=== PATIENT | male | born 1940 | race Caucasian/White ===

== ENCOUNTER → 2020-10-01 00:09 | Outpatient (CLI) | payer MEDICARE, SELFPAY ==
[2020-10-01 18:28] LABS: SARS-CoV-2 RNA PCR Negative
== END ==
PROVIDERS: PCP Internal Medicine; Visit Provider Plastic Surgery
DX: Z01.812 Encounter for preprocedural laboratory examination (principal); Z20.822 Contact with and (suspected) exposure to COVID-19
CPT/HCPCS: C9803; U0003; U0005

== ENCOUNTER 2020-10-04 00:59 | Day surgery (SDC) | payer MEDICARE, SELFPAY ==
[2020-10-01 13:40] VITALS: BMI 24.6
--- NOTE | 2020-10-04 07:06 | WPDHPUPDATE1 ---
History and Physical Update Update Date/Time: 10/04/20 07:06 History and Physical has been reviewed, including an updated exam of the patient. There are NO changes in the patient's condition. Risks, benefits, and alternatives have been discussed and questions answered. Patient agrees to proceed with procedure.
[2020-10-04 08:17] VITALS: BP 116/72; PULSE 109; RESP 16; TEMP 36.8; O2SAT 99
[2020-10-04] MEDS: LACTATED RINGERS 1,000 ML 30 ML IV CONT (08:27)
--- NOTE | 2020-10-04 09:06 | WPDANESEPPF ---
Anes - Initial Pre Proc Eval Procedure: Operation Date: 10/04/20 10:00 Proposed Procedures p Excision Of Basal Cell Carcinoma Right Upper Back - Steve Devries MD Date/Time: 10/04/20 09:06 Surgeon: Steve Devries MD Pre Op Diagnosis: Basal Cell Carcinoma Right Upper Back Patient Data Age: 80 Gender: M Height: 5 ft 5 in Weight: 72 kg Last Vital Signs Temp 36.8 C 10/04/20 08:17 Pulse 109 H 10/04/20 08:17 Resp 16 10/04/20 08:17 BP 116/72 10/04/20 08:17 Pulse Ox 99 10/04/20 08:17 Allergies Allergy/AdvReac Type Severity Reaction Status Date / Time No Known Drug Allergies Allergy Unknown NONE Verified 10/04/20 08:01 Home Medications Medication Instructions Recorded Confirmed Type amiodarone 200 mg PO HS 10/01/20 10/04/20 History budesonide-formoterol [Symbicort] 2 puff INHALATION PRN PRN 10/01/20 10/04/20 History cyanocobalamin (vitamin B-12) 1,000 mcg PO HS 10/01/20 10/04/20 History ferrous sulfate 325 mg PO DAILY 10/01/20 10/04/20 History finasteride 5 mg PO HS 10/01/20 10/04/20 History fludrocortisone 0.1 mg PO DAILY 10/01/20 10/04/20 History midodrine 10 mg PO TID 10/01/20 10/04/20 History pantoprazole 40 mg PO QAM 10/01/20 10/04/20 History ranolazine 500 mg PO QAM 10/01/20 10/04/20 History simvastatin 20 mg PO HS 10/01/20 10/04/20 History tamsulosin 0.4 mg PO HS 10/01/20 10/04/20 History zolpidem 5 mg PO HS 10/01/20 10/04/20 History Patient hx anesthesia problems: none Family hx anesthesia problems: none [facility] Past Medical History Medical History (Updated 10/04/20 @ 09:06 by Brenden Muller MD) CAD (coronary artery disease) HTN (hypertension) Surgical History Surgical History (Updated 10/04/20 @ 09:06 by Brenden Muller MD) Hx of CABG Social History Social History Smoking packs per day: 1 Smoking cigarettes per day: 20.0 Years smoked: 51 Smoking pack-years: 51.00 Smoking status: Former smoker Tobacco type: cigarettes Smoking end date: 08/24/03 Living arrangements: with family Spiritual care concerns: No Anes - Eval Final PreProcedure Day of Procedure 10/04/20 09:06 Patient weight: overweight Heart: regular rate and rhythm Lungs: clear to auscultation Airway: Mallampati scale class II Neurological: alert and oriented Last oral intake: >/= 8 hours ASA classification: III Emergent: no Anesthetic plan: proceed Anesthesia type and monitoring: general GIVS and standard monitoring Informed Consent: The patient's anesthetic plan and its attendant risks and benefits were discussed with the patient/family/POA. Questions were solicited and answers provided to the satisfaction of the patient/family/POA.
[2020-10-04] MEDS: LIDO 1%/EPINEPHRINE 1:100,000 50 ML VIAL 7 ML INFILTRATE (10:05)
[2020-10-04 10:22] VITALS: BP 92/56; PULSE 99; RESP 14; O2SAT 100
--- NOTE | 2020-10-04 10:24 | PM.OP ---
Procedure Note - Brief Procedure Note - Brief Date of procedure: 10/04/20 Pre-op diagnosis: Basal Cell Carcinoma Right Upper Back Post-op diagnosis: same Procedure performed: Excision of BCC right upper back with intermediate repair 6 cm. Anesthesia: MAC Surgeon: Steve Devries MD Pathology: yes Complications: No immediate complications Disposition: same day
--- NOTE | 2020-10-04 10:26 | PM.PROC ---
Procedure Note - Detailed Date of procedure: 10/04/20 Pre-op diagnosis: Basal Cell Carcinoma Right Upper Back Post-op diagnosis: same Procedure performed: 2.6 cm excision of basal cell carcinoma of the right upper back with intermediate repair 6 cm Description of procedure: The site was marked on the patient's back in the holding area. He was taken to the operating room placed supine on the operating table. He was given some IV sedation and positioned under his left side. The back was prepped and draped in usual fashion. The site was marked for an excision. Frozen section was not planned. The area was infiltrated with 1% lidocaine with epinephrine. The full-thickness skin ellipse was taken as marked into the subcutaneous tissue. The wound was cauterized as needed and closed with intradermal 3-0 Vicryl suture and running 4-0 nylon tolerated well specimen sent for permanent section is discharged with no prescriptions Surgeon: Steve Devries MD
[2020-10-04 11:00] VITALS: BP 108/73; PULSE 101
[2020-10-04 11:30] VITALS: BP 105/73; PULSE 98
--- NOTE | 2020-10-04 11:47 | SUR.PHASEII ---
Patient is all ready just waiting on ride.
== END 2020-10-04 11:50 | disposition home or self-care (01) ==
PROVIDERS: PCP Internal Medicine; Visit Provider Plastic Surgery
PROC: (CPT 11603; principal; 2020-10-04 10:00)
DX: C44.519 Basal cell carcinoma of skin of other part of trunk (principal); I10 Essential (primary) hypertension; I25.10 Atherosclerotic heart disease of native coronary artery without angina pectoris; Z95.1 Presence of aortocoronary bypass graft; Z87.891 Personal history of nicotine dependence
CPT/HCPCS: 11603; 12032; 88305; A9270; J2405; J2704; J3010; J7120

== ENCOUNTER → 2021-06-17 03:52 | Outpatient (CLI) | payer MEDICARE, SELFPAY ==
[2021-06-17 19:59] LABS: SARS-CoV-2 RNA PCR Negative
== END ==
PROVIDERS: PCP Internal Medicine; Visit Provider Plastic Surgery
DX: Z01.812 Encounter for preprocedural laboratory examination (principal); Z20.822 Contact with and (suspected) exposure to COVID-19
CPT/HCPCS: C9803; U0003; U0005

== ENCOUNTER 2021-06-17 09:21 | Outpatient (CLI) | payer MEDICARE, SELFPAY ==
[2021-06-17 09:47] LABS: Hematocrit 42.2 % (42.0-52.0); Hemoglobin 13.8 g/dL (14.0-18.0)
[2021-06-17 10:00] LABS: Anion Gap 8 mmol/L (8-16); Blood Urea Nitrogen 23 mg/dL (9-20); Calcium 9.9 mg/dL (8.4-10.2); Carbon Dioxide 31 mmol/L (22-30); Chloride 101 mmol/L (98-107); Estimated Glomerular Filt Rate > 60; Glucose 103 mg/dL (65-110); Potassium 4.6 mmol/L (3.4-5.0); Sodium 140 mmol/L (137-145)
== END 2021-06-17 09:22 | disposition home or self-care (01) ==
LOC: ANHSURGERY 09:26
PROVIDERS: Anesthesiology; PCP Internal Medicine; Visit Provider Plastic Surgery
DX: Z01.818 Encounter for other preprocedural examination (principal); Z79.899 Other long term (current) drug therapy; D64.9 Anemia, unspecified
CPT/HCPCS: 36415; 80048; 85014; 85018; C9803; U0003; U0005

== ENCOUNTER 2021-06-20 01:17 | Day surgery (SDC) | payer MEDICARE, SELFPAY ==
[2021-06-14 15:00] VITALS: BMI 22.5
--- NOTE | 2021-06-20 09:42 | WPDHPUPDATE1 ---
History and Physical Update Update Date/Time: 06/20/21 09:42 History and Physical has been reviewed, including an updated exam of the patient. There are NO changes in the patient's condition. Risks, benefits, and alternatives have been discussed and questions answered. Patient agrees to proceed with procedure.
[2021-06-20 10:45] VITALS: BP 111/68; PULSE 119; RESP 16; TEMP 36.9; O2SAT 99
[2021-06-20 11:35] VITALS: BMI 23.1
[2021-06-20] MEDS: LACTATED RINGERS 1,000 ML 30 ML IV CONT ×2 (11:49→14:58)
--- NOTE | 2021-06-20 12:12 | WPDANESEPPF ---
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 Patient Data Age: 80 Gender: M Height: 1.65 m Weight: 63 kg Allergies Allergy/AdvReac Type Severity Reaction Status Date / Time No Known Drug Allergies Allergy Unknown NONE Verified 06/20/21 10:47 Home Medications Medication Instructions Recorded Confirmed Type cyanocobalamin (vitamin B-12) 1,000 mcg PO HS 10/01/20 06/20/21 History finasteride 5 mg PO HS 10/01/20 06/14/21 History fludrocortisone 0.1 mg PO BID 10/01/20 06/14/21 History midodrine 10 mg PO TID 10/01/20 06/20/21 History pantoprazole 40 mg PO QAM 10/01/20 06/14/21 History ranolazine 500 mg PO BID 10/01/20 06/20/21 History simvastatin 20 mg PO HS 10/01/20 06/14/21 History tamsulosin 0.4 mg PO HS 10/01/20 06/14/21 History budesonide-formoterol [Symbicort] 2 puff INHALATION Q12H PRN 06/14/21 06/14/21 History cetirizine 10 mg PO DAILY 06/14/21 06/14/21 History fluticasone furoate See Rx Instructions .ROUTE .COMPLEX 06/14/21 06/14/21 History furosemide [Lasix] 20 mg PO DAILY 06/14/21 06/14/21 History metoprolol tartrate 25 mg PO DAILY 06/14/21 06/20/21 History multivitamin [Multi-Vitamin] 1 tablet PO DAILY 06/14/21 06/20/21 History nitroglycerin 0.4 mg SUBLINGUAL Q5-15M PRN 06/14/21 06/14/21 History potassium chloride 10 meq PO BID 06/14/21 06/14/21 History sertraline 25 mg DAILY 06/14/21 06/14/21 History spironolactone 50 mg PO DAILY 06/14/21 06/14/21 History Patient hx anesthesia problems: none Family hx anesthesia problems: none Results Review: All pre-operative results and documents have been reviewed as part of the pre-operative evaluation. [facility]LY [facility] Past Medical History Medical History (Updated 10/04/20 @ 09:06 by Brenden Muller MD) CAD (coronary artery disease) HTN (hypertension) Surgical History Surgical History (Updated 10/04/20 @ 09:06 by Brenden Muller MD) Hx of CABG Social History Social History Smoking packs per day: 1 Smoking cigarettes per day: 20.0 Years smoked: 51 Smoking pack-years: 51.00 Smoking status: Former smoker Tobacco type: cigarettes Second hand tobacco smoke exposure: No Smoking end date: 08/24/03 Alcohol intake: never Substance use: never Substance use type: does not use Living arrangements: with family Spiritual care concerns: No Anes - Eval Final PreProcedure Day of Procedure 06/20/21 12:12 Patient weight: normal Heart: irregular rhythm Lungs: clear to auscultation Airway: Mallampati scale class III Neurological: alert and oriented Last oral intake: >/= 8 hours ASA classification: III Emergent: no Anesthetic plan: proceed Anesthesia type and monitoring: general GIVS and standard monitoring Results Review: All pre-operative results and documents have been reviewed as part of the pre-operative evaluation. Informed Consent: The patient's anesthetic plan and its attendant risks and benefits were discussed with the patient/family/POA. Questions were solicited and answers provided to the satisfaction of the patient/family/POA.
[2021-06-20] MEDS: LIDO 1%/EPINEPHRINE 1:100,000 50 ML VIAL 8 ML INFILTRATE (13:43)
[2021-06-20 14:40] VITALS: BP 100/58; PULSE 111; RESP 20; O2SAT 100
--- NOTE | 2021-06-20 14:58 | W.PM.PROC2 ---
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 2. basal cell carcinoma right lateral restorationist) Procedure Performed 2 cm excision of squamous cell carcinoma and left posterior helix rim with frozen section and full-thickness skin graft 2 sq cm. 1 cm excision of basal cell carcinoma of the right lateral restorationist with frozen section and 2 cm intermediate repair Surgeon Steve Devries MD Engineer Assistant She on Anesthesia MAC Indications Prior biopsies Description of Procedure The sites were marked on patient in the holding area. He was taken to the operating room where he was placed supine on the operating table. Time-out was held confirmed. He was given general IV sedation and the base the neck and ear were prepped and draped in usual fashion. The sites were marked for excision and locally infiltrated with 1% lidocaine with epinephrine. The lesion from the ear was taken 1st as an oval ellipse off the perichondrium. The most superior aspect was marked for suture for 12:00 o'clock and was sent to pathology the pathologist revealed that there was prior biopsy changes only no tumor. That site was closed with the full-thickness skin graft taken from the upper neck just behind the earlobe. This is a full-thickness graft elevated after local anesthetic was infiltrated. The the graft was defatted and inset to the ear with 5 0 nylon. Three quilting stitches were placed as well. No additional dressing. The donor site was closed with intradermal running 4-0 Vicryl suture and glue. The 2nd lesion was the basal cell carcinoma taken as a full-thickness specimen from the left lateral restorationist. The specimen also marked for orientation sent to frozen section. Seen report revealed the biopsy changes only no residual tumor. This wound was closed with undermining of 1 cm in all directions. We were able to advance the wound margins with intradermal 4-0 Vicryl sutures. The skin was then closed with running with 5 0 nylon and a small standing cone at 1 end was trimmed out. The patient is discharged in stable condition the lab instructions in wound care and follow-up and a prescription hydrocodone 5/325 number four. Estimated Blood Loss 5 Drains No Packing No Pathology yes Complications No immediate complications Condition stable Disposition same day
[2021-06-20 15:10] VITALS: BP 98/58; PULSE 112; RESP 18; O2SAT 97
[2021-06-20 15:40] VITALS: BP 123/62; PULSE 80; RESP 20; O2SAT 99
== END 2021-06-20 15:50 | disposition home or self-care (01) ==
PROVIDERS: PCP Internal Medicine; Visit Provider Plastic Surgery
PROC: (CPT 11642; principal; 2021-06-20 13:00)
DX: C44.222 Squamous cell carcinoma of skin of right ear and external auricular canal (principal); C44.319 Basal cell carcinoma of skin of other parts of face; I10 Essential (primary) hypertension; I48.91 Unspecified atrial fibrillation; I25.119 Atherosclerotic heart disease of native coronary artery with unspecified angina pectoris; Z95.1 Presence of aortocoronary bypass graft; Z87.891 Personal history of nicotine dependence
CPT/HCPCS: 11642; 15260; 11641; 12051; 88305; 88331; A9270; J2704; J3010; J7120

== ENCOUNTER 2021-09-26 00:25 | Day surgery (SDC) | payer MEDICARE, SELFPAY ==
--- NOTE | 2021-09-18 14:35 | PC.NURSE ---
Report to the Outpatient Waiting Room, entrance under the green pavilion located off [facility], at time __0600 on date __09/26/21 . OR Time: __729 . - You and your visitor will be asked a series of questions to screen for COVID 19 for your protection. - A mask is required within the hospital. - Only one visitor is allowed at this time. Patient visitors will be guided where to wait when not with patient. Preoperative COVID Testing Requirements: No COVID Test needed if: (proof is required; if not received patient will have Rapid Test prior to entry) - Patient has received COVID Vaccine at least 14 days prior to procedure date or - Patient has positive COVID test result within last 90 days of surgery date. COVID Test needed if above criteria is not met If not COVID vaccinated a COVID test must be conducted within 72 hours of surgery and patient is asked to isolate self from time of testing until procedure. You will go to the [facility] for your COVID testing. The [facility] site is located at the corner of [address] [facility]. You will only be called if COVID results are positive and your surgeon may reschedule your elective surgery date. Patients may have clear liquids (water, carbonated beverages, clear teas, apple juice) until 3 hours prior to surgery with a maximum of 20 ounces. - No food from midnight until time of surgery - Infants may have breast milk until 4 hours before surgery, infant formula 6 hours prior to surgery. - Children will be allowed to drink immediately following surgery. If applicable, please bring a bottle or sippy cup to assist with drinking. Juice, water, soda, and popsicles are readily available. For infants on formula, please bring formula the day of surgery. Pacifiers are allowed. Take the following medications with a SIP of water the morning of surgery: __SYMBICORT,METOPROLOL,MIDODRINE,SERTRALINE Medications to discontinue per physician __ALL VITAMINS 3 DAYS PRE OP Date to take last dose__09/22/21 Please no make-up, nail [place], hairspray, perfume, deodorant, or body powder the day of surgery. No jewelry (including any body piercings) or valuables the day of surgery, leave them at home. Please take a shower or bath the night before, or the morning of, surgery with an antibacterial soap. Wear comfortable, loose fitting clothing. Children are encouraged to wear pajamas. - Jewelry must be removed prior to entering the operating room. Rings and piercings that are not removed may be cut off. - The hospital will not accept responsibility for valuables. - Please leave all valuables, including medications, at home the day of surgery. If you are going home after surgery, a licensed driver material handler must drive you home. - NO public transportation without another adult. - We recommend that an adult stay with you for 24 hours following discharge. - We also recommend that you do not drive, make important decision, drink alcoholic beverages, or take any drugs that were not prescribed by your health care provider for at least 24 hours after your discharge time. For Pediatric surgeries, we recommend two adults accompany the child home (only one inside the building at this time). Follow any additional instructions given to you from your surgeon. Telephone instructions given to _SPOUSE ALIALFONZO and asked if any additional questions and then verbalized understanding. Patient advised to call surgeon office or pre surgery nurse liaison [phone] if any additional questions.
[2021-09-18 14:39] VITALS: BMI 25.2
[2021-09-26] VITALS (8 sets, daily range): BP systolic 103–123; BP diastolic 43–84; PULSE 48–99; RESP 12–20; TEMP 36.4–36.7; O2SAT 94–100
[2021-09-26] MEDS: LACTATED RINGERS 1,000 ML 30 ML IV CONT ×2 (07:05→08:22)
--- NOTE | 2021-09-26 07:11 | WPDANESEPPF ---
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 Patient Data Age: 81 Gender: M Height: 1.64 m Weight: 67.6 kg Allergies Allergy/AdvReac Type Severity Reaction Status Date / Time No Known Drug Allergies Allergy Unknown NONE Verified 09/18/21 14:08 Home Medications Medication Instructions Recorded Confirmed Type cyanocobalamin (vitamin B-12) 1,000 mcg PO DAILY 10/01/20 09/26/21 History finasteride 5 mg PO HS 10/01/20 09/26/21 History fludrocortisone 0.1 mg PO BID 10/01/20 09/26/21 History midodrine 10 mg PO TID 10/01/20 09/26/21 History pantoprazole 40 mg PO QAM 10/01/20 09/26/21 History ranolazine 500 mg PO BID 10/01/20 09/26/21 History tamsulosin 0.4 mg PO HS 10/01/20 09/18/21 History budesonide-formoterol [Symbicort] 2 puff INHALATION Q12H PRN 06/14/21 09/18/21 History cetirizine 10 mg PO DAILY 06/14/21 09/26/21 History fluticasone furoate See Rx Instructions .ROUTE .COMPLEX 06/14/21 09/26/21 History furosemide [Lasix] 20 mg PO PRN PRN 06/14/21 09/26/21 History metoprolol tartrate 25 mg PO DAILY 06/14/21 09/26/21 History multivitamin 1 tablet PO DAILY 06/14/21 09/26/21 History nitroglycerin 0.4 mg SUBLINGUAL Q5-15M PRN 06/14/21 09/18/21 History sertraline 25 mg PO DAILY 06/14/21 09/26/21 History spironolactone 50 mg PO DAILY 06/14/21 09/26/21 History hydrocodone-acetaminophen 1 tablet PO Q6H PRN #4 tablet MDD 6 06/20/21 09/18/21 Rx Patient hx anesthesia problems: none Family hx anesthesia problems: none Results Review: All pre-operative results and documents have been reviewed as part of the pre-operative evaluation. [facility] Past Medical History Medical History Anemia CAD (coronary artery disease) COPD (chronic obstructive pulmonary disease) GERD (gastroesophageal reflux disease) HTN (hypertension) Hyperlipidemia Surgical History Surgical History Hx of CABG Social History Social History Smoking packs per day: 1 Smoking cigarettes per day: 20.0 Years smoked: 51 Smoking pack-years: 51.00 Smoking status: Former smoker Tobacco type: cigarettes Second hand tobacco smoke exposure: No Smoking end date: 08/24/00 Alcohol intake: never Substance use: never Substance use type: does not use Living arrangements: with family Spiritual care concerns: No Anes - Eval Final PreProcedure Day of Procedure 09/26/21 07:11 Patient weight: normal Heart: regular rate and rhythm Lungs: decreased breath sounds Airway: Mallampati scale class II Neurological: other (alert) Last oral intake: >/= 8 hours ASA classification: IV Emergent: no Anesthetic plan: proceed Anesthesia type and monitoring: general LMA and standard monitoring Results Review: All pre-operative results and documents have been reviewed as part of the pre-operative evaluation. Informed Consent: The patient's anesthetic plan and its attendant risks and benefits were discussed with the patient/family/POA. Questions were solicited and answers provided to the satisfaction of the patient/family/POA.
--- NOTE | 2021-09-26 07:23 | WPDHPUPDATE1 ---
History and Physical Update Update Date/Time: 09/26/21 07:23 History and Physical has been reviewed, including an updated exam of the patient. There are NO changes in the patient's condition. Risks, benefits, and alternatives have been discussed and questions answered. Patient agrees to proceed with procedure.
[2021-09-26] MEDS: BACITRACIN OINTMENT 15 GM TUBE 1 APPLIC TOPICAL (08:10)
[2021-09-26] MEDS: LIDO 1%/EPINEPHRINE/PF 1:200,000 30 ML VIAL INFILTRATE (08:10)
[2021-09-26] MEDS: BALANCED SALT SOLN OPHTH IRRIG 30 ML BTL EACH EYE (08:15)
--- NOTE | 2021-09-26 08:51 | W.PM.PROC2 ---
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 2.5 cm excision of squamous cell carcinoma in situ of the left of midline superior forehead with intermediate repair 4.5 cm Surgeon Steve Devries MD Anesthesia MAC Indications biopsies Description of Procedure The 2 sites were marked on the patient's forehead in holding area. The sites were compared to line drawings from previous notes by Dr. Devries and Dr. Jurado. The patient was taken to the operating room placed supine on the operating table. Under bright light and loupe magnification the sites were reconfirmed. The forehead was prepped and draped usual fashion. He was given IV sedation. A time-out was held and confirmed. We elected to take to nearby masses of concern on the left sided specimen. The sites were marked out for excision and infiltrated with 1% lidocaine with epinephrine. The lesion from the right side was taken as a full-thickness skin ellipse. The specimen was taken into the subcutaneous tissue and sent for permanent section. The wound edges were undermined approximately 4 mm on both sides closed easily with intradermal 3-0 Vicryl and the skin closed running 5 0 nylon. Attention was turned to the left side where the 3 lesions lying close together were taken as a group this included the previous biopsy site. That specimen was also taken deep into the subcutaneous tissue and sent to permanent section. The wound edges in this case were undermined over a cm in each direction allowing coaptation of the wound margins using 3-0 intradermal Vicryl. The skin was closed with a running 5 0 nylon. Tolerated well Drains No Packing No Pathology yes Complications No immediate complications Condition stable Disposition PACU
== END 2021-09-26 10:12 | disposition home or self-care (01) ==
PROVIDERS: PCP Internal Medicine; Visit Provider Plastic Surgery
PROC: (CPT 11642; principal; 2021-09-26 07:30)
DX: C44.329 Squamous cell carcinoma of skin of other parts of face (principal); I10 Essential (primary) hypertension; J44.9 Chronic obstructive pulmonary disease, unspecified; E78.5 Hyperlipidemia, unspecified; I25.10 Atherosclerotic heart disease of native coronary artery without angina pectoris; D64.9 Anemia, unspecified; F41.9 Anxiety disorder, unspecified; Z87.891 Personal history of nicotine dependence; K21.9 Gastro-esophageal reflux disease without esophagitis
CPT/HCPCS: 11642; 11643; 12053; 88304; 88305; A9270; J1100; J2370; J2405; J2704; J3010; J7120